=== PATIENT | female | born 2000 | race Caucasian/White ===

== ENCOUNTER 2024-07-18 13:17 | Outpatient (CLI) | payer OTHER, SELFPAY | END 2024-07-18 13:18 | disposition home or self-care (01) | LOC: ANHIMG 13:19 | PROVIDERS: Visit Provider Obstetrics & Gynecology | DX: N64.52 Nipple discharge (principal); R92.8 Other abnormal and inconclusive findings on diagnostic imaging of breast | CPT/HCPCS: 76642 ==

== ENCOUNTER 2024-08-30 12:31 | Emergency (ER) | payer OTHER, SELFPAY ==
[2024-08-30 12:35] VITALS: BP 132/79; PULSE 90; RESP 20; TEMP 37.3; O2SAT 100
--- NOTE | 2024-08-30 12:53 | ED_ITS ---
HPI - URI/Sore Throat General Chief Complaint: Upper Respiratory Infection Stated Complaint: Poss Sinus Infection/congestion Time Seen by Provider: 08/30/24 12:52 Source: patient Mode of arrival: ambulatory Limitations: no limitations History of Present Illness HPI Narrative: Patient presents to the clinic today for congestion x 1 week and and a sore throat that started yesterday. She states that she normally has allergies around this time of year, so she has been taking Zyrtec for relief. The throat is erythematous. Related Data Allergies Allergy/AdvReac Type Severity Reaction Status Date / Time No Known Allergies Allergy Verified 08/30/24 12:46 Review of Systems Review of Systems: CONSTITUTIONAL: Denies body aches, fever, chills, or sweats. EYES: Denies visual changes, redness, or discharge. ENT: Reports sore throat, rhinorrhea, and congestion, Denies otalgia. CARDIOVASCULAR: Denies chest pain, palpitations, or edema. RESPIRATORY: Denies dyspnea. GASTROINTESTINAL: Denies abdominal pain, nausea, vomiting, or diarrhea. SKIN: Denies rash NEUROLOGIC: Denies headache All systems reviewed & are unremarkable except as noted in HPI and below [facility] Social History Social History (Updated 08/17/24 @ 09:26 by Singh Keene MA) Smoking status: Never smoker Alcohol intake: never Substance use: never Substance use type: does not use Do You Feel Safe in your Home?: Yes Lack of Transportation: No Lack of Food: Never True Current Housing: I Have Housing Concerned About Future Housing: No Difficulty Paying Gas/Electric Bills: No Difficulty Paying for Meds: No Currently Unemployed: No Education: High School Diploma/GED Difficulty w/ Childcare or Family Care: No Living arrangements: alone Occupation/Education: occupation 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 Please see nursing chart for further information. There is no relevant family history pertinent to the presenting complaint. Exam Narrative: GENERAL: Ill-appearing, ?no acute distress. EYES: ?conjunctivae clear. ENT: Mucous membranes moist. TM pearly gannon with normal light reflex bilaterally; no tragal tenderness. Oropharynx erythematous without lesions. Tonsils without exudate. No drooling, no hoarseness, no trismus, uvula midline. No tripod positioning, hot potato voice, or soft palate swelling. NECK: Supple. No lymphadenopathy CHEST: Clear to auscultation, breath sounds equal. ?No respiratory distress, speaks in full sentences. HEART: Regular rate and rhythm. No murmur heard. SKIN: Warm, dry, no rash. NEURO: Alert and oriented x3.? Course Course Level of Care: Express Care Visit Vital Signs Vital signs: Vital Signs Temperature 99.2 F 08/30/24 12:35 Pulse Rate 90 08/30/24 12:35 Respiratory Rate 20 08/30/24 12:35 Blood Pressure 132/79 08/30/24 12:35 Pulse Oximetry 100 08/30/24 12:35 Oxygen Delivery Room Air 08/30/24 12:35 Temperature 99.2 F 08/30/24 12:35 Pulse Rate 90 08/30/24 12:35 Respiratory Rate 20 08/30/24 12:35 Blood Pressure 132/79 08/30/24 12:35 Pulse Oximetry 100 08/30/24 12:35 Oxygen Delivery Room Air 08/30/24 12:35 MDM - URI/Sore Throat MDM Narrative Medical decision making narrative: Discussed physical exam findings. Advised supportive measures and signs/symptoms to go to the ER. Pt is appropriate for outpatient treatment and follow up. Differential Diagnosis Differential diagnosis: Likely upper respiratory infection, sinusitis and viral infection Critical Care Time Critical Care Time Critical Care Time: No Discharge Plan Discharge Clinical Impression: Sinusitis Patient Disposition: Home Condition: Stable Instructions: Sinusitis (ED) Additional Instructions: Recommend Flonase spray and Zyrtec (or Claritin/Elisabet) over the counter Cough syrup may cause drowsiness; avoid driving or take it at night time. Tylenol 1000mg every 8 hours as needed for pain Symptomatic treatment includes: rest, fluids, and increase humidity of the air at home. Follow up with your primary care provider in 1 week. Go to the ER for worsening symptoms or concerns. Patient Language: Setswana Prescriptions: New amoxicillin-pot clavulanate 875-125 mg tablet 1 tablet PO Q12H Qty: 10 0RF No Action escitalopram oxalate [Lexapro] 10 mg tablet 10 mg PO DAILY Qty: 90 4RF levonorgestrel-ethinyl estrad [Aviane] 0.1-20 mg-mcg tablet 1 tablet PO DAILY Qty: 84 3RF Follow-up/Referrals: UNKNOWN,DOCTOR [Primary Care Provider] - Stand Alone Forms: Work/School Release IP
[2024-08-30 13:28] LABS: EDSTREPNEGPOS1 Negative (Negative)
--- OUTSIDE RECORDS SUMMARY | 2024-08-30 13:34 | XMS_ITS | Clinical Summary ---
Author Organization [facility] Address [address] [place] [address] Care Team Providers Care Census Taker Name Role Phone Unavailable Primary Care Provider Unavailabl e Source Comments [facility],non-owned Affiliates and Associated Physician Practices is amultiple site organization consisting of ambulatory clinics and hospital sitesin [place], [place], [place] and [place]. This disclosure is being madepursuant to the Care Everywhere program and may not contain all information available regarding this patient. Last updated 18.[facility] [employer] Immunizations Immunization Administration Dates Next Due MENINGOCOCCAL ACWY (MCV4P) VAC IM 01/25/2018 Social History Tobacco Use Types Packs/Day Years Used Date Smoking Tobacco: Never Assessed Comments Unknown Sex and Gender Information Value Date Recorded Sex Assigned at Not on file Legal Sex Female 6:25 PM CDT Gender Identity Not on file Sexual Orientation Not on file Plan of Treatment Health Maintenance Due Date Last Done Comments PAP SMEAR 1999 HIV SCREENING 08/28/2014 HPV VACCINE (1 - 3-dose series) 08/28/2014 CHLAMYDIA/GONORRHEA SCREENING 2015 HEPATITIS C SCREENING 08/24/2017 DTAP/TDAP/TD VACCINES (1 - Tdap) 08/28/2018 HEPATITIS B VACCINE (1 of 3 - 19+ 3-dose series) 08/28/2018 COVID-19 VACCINE (1 - 2023-2 5 season) 2024 DEPRESSION SCREENING 05/17/2024 INFLUENZA VACCINE (Season Ended) 2025 ZOSTER VACCINE (1 of 2) 08/28/2049 MENINGOCOCCAL GROUPS A/C/Y/W VACCINE Completed 01/25/2018 HIB VACCINE Aged Out No longer eligi ble based on patient's age to complete this topic MENINGOCOCCAL (Group B) VACC INE SHARED DECISION-MAKING Aged Out No longer eligibl e based on patient's age to complete this topic PNEUMOCOCCAL VACCINE Aged Out No long er eligible based on patient's age to complete this topic
--- OUTSIDE RECORDS SUMMARY | 2024-08-30 13:34 | XMS_ITS | Clinical Summary ---
Author Organization [facility] [employer] Address [address] [place] [id number] Care Team Providers Care Sheep Boner Name Role Phone Unavailable Primary Care Provider Unavailabl e Active Problems No known active problems Encounters Date Type Department Care Team Description 07/22/2024 External Device Data [facility]STRACTION Provider, Abstract 07/21/2024 External Device Data [facility] Provider, Abstract 07/19/2024 External Device Data [facility] Provider, Abstract 07/05/2024 External Device Data [facility] Provider, Abstract 06/13/2024 External Device Data [facility] Provider, Abstract 06/08/2024 External Device Data [facility]STRACTION Provider, Abstract from Last 3 Months Social History Tobacco Use Types Packs/Day Years Used Date Smoking Tobacco: Never Tobacco Cessation:Counseling Given: Not Answered Alcohol Use Standard Drinks/Week Comments Never 0 (1 standard drink = 0.6 oz pur e alcohol) Comments Unknown Sex and Gender Information Value Date Recorded Sex Assigned at Not on file Legal Sex Female 4:56 PM CDT Gender Identity Not on file Sexual Orientation Not on file Last Filed Vital Signs Vital Sign Reading Time Taken Comments Blood Pressure 124/68 07/28/2023 1:54 PM CDT Pulse - - Temperature - - Respiratory Rate - - Oxygen Saturation - - Inhaled Oxygen Concentration - - Weight 78 kg (172 lb) 07/28/2023 1:54 PM CDT Height 165.1 cm (5' 5 ) 07/28/2023 1:54 PM CDT Body Mass Index 28.62 07/28/2023 1:54 PM CDT Plan of Treatment Health Maintenance Due Date Last Done Comments HPV VACCINES (1 - 3-dose series) 08/28/2014 DTAP/TDAP/TD VACCINES (1 - Tdap) 08/28/2018 HEPATITIS B VACCINES (1 of 3 - 19+ 3-dose series) 08/28/2018 CERVICAL CANCER SCREENING 08/28/2020 HPV/Cotest (21-29) 08/28/2020 PAP SMEAR 08/28/2020 PAP SMEAR 08/28/2020 INFLUENZA VACCINE (#1) 2023 PNEUMOCOCCAL VACCINE 0-49 YEARS Aged Out No longer eligible based on patient's age to complete this topic Insurance [employer]
== END 2024-08-30 13:19 | disposition home or self-care (01) ==
DX: J32.9 Chronic sinusitis, unspecified (principal)
CPT/HCPCS: 87081; 87880; 99213; G0463

== ENCOUNTER 2025-01-19 08:55 | Outpatient (CLI) | payer OTHER, SELFPAY ==
--- NOTE | ~2025-01-19 | US_ITS ---
Clinical history:6 month follow-up left breast EXAM:Ultrasound breast Limited. TECHNIQUE:Multiple static grayscale and color Doppler images were obtained of the left breast at the 12:00 position Comparisons:Breast ultrasound 07/18/2024 FINDINGS: There is a 6 x 9 x 3 mm benign septated cyst in the left breast at 12:00 position. The finding is similar size and shape as compared to the study from 07/18/2024 IMPRESSION: 1. Benign cyst in the left breast in the 12:00 position. No additional workup is necessary. BI-RADS 2-Benign Reviewed, dictated and finalized at location Q. IMPRESSION: 1. Benign cyst in the left breast in the 12:00 position. No additional workup i s necessary. BI-RADS 2-Benign
--- OUTSIDE RECORDS SUMMARY | 2025-01-19 09:01 | XMS_ITS | Clinical Summary ---
Author Organization [facility] Address [address] [place] [address] Care Team Providers Care Installation Drafter Name Role Phone Unavailable Primary Care Provider Unavailabl e Source Comments [facility],non-owned Affiliates and Associated Physician Practices is amultiple site organization consisting of ambulatory clinics and hospital sitesin [place], [place], [place] and [place]. This disclosure is being madepursuant to the Care Everywhere program and may not contain all information available regarding this patient. Last updated 18.[facility] [employer] Immunizations Immunization Administration Dates Next Due MENINGOCOCCAL [...] Health Maintenance Due Date Last Done Comments HIV SCREENING 08/28/2014 HPV VACCINE (1 - 3-dose series) 08/28/2014 CHLAMYDIA/GONORRHEA SCREENING 2015 HEPATITIS C SCREENING 08/24/2017 DTAP/TDAP/TD VACCINES (1 - Tdap) 08/28/2018 HEPATITIS B VACCINE (1 of 3 - 19+ 3-dose series) 08/28/2018 DEPRESSION SCREENING 05/17/2024 COVID-19 VACCINE (1 - 2023-2 5 season) 2025 INFLUENZA VACCINE (#1) 2025 ZOSTER VACCINE (1 of 2) 08/28/2049 [...]
--- OUTSIDE RECORDS SUMMARY | 2025-01-19 09:01 | XMS_ITS | Clinical Summary ---
Author Organization [facility] [employer] Address [address] [place] [id number] Care Team Providers Care Winder Operator Name Role Phone Unavailable Primary Care Provider Unavailabl e Active Problems No known active problems Social History Tobacco Use Types Packs/Day Years [...] 1:54 PM CDT Height 165.1 cm (5' 5) 07/28/2023 1:54 PM CDT Body Mass Index 28.62 07/28/2023 1:54 PM CDT Plan of Treatment Health Maintenance Due Date Last Done Comments HPV VACCINES (1 - 3-dose series) 08/28/2014 DTAP/TDAP/TD VACCINES (1 - Tdap) 08/28/2018 HEPATITIS B VACCINES (1 of 3 - 19+ 3-dose series) 08/15 CERVICAL CANCER SCREENING 08/28/2020 HPV/Cotest (21-29) 08/28/2020 PAP SMEAR 08/28/2020 INFLUENZA VACCINE (#1) 2024 [facility] [employer] [facility] [phone]
== END 2025-01-19 08:56 | disposition home or self-care (01) ==
LOC: ANHFOHIMG 08:57
PROVIDERS: Visit Provider Obstetrics & Gynecology
DX: N60.02 Solitary cyst of left breast (principal)
CPT/HCPCS: 76642